=== PATIENT | male | born 1955 | race Caucasian/White ===

== ENCOUNTER 2020-04-26 11:09 | Outpatient (CLI) | payer MEDICARE, OTHER, SELFPAY ==
--- NOTE | ~2020-04-26 | XR_ITS ---
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 Osteoarthritis. TECHNIQUE: 4 views of right knee were obtained. COMPARISON: None. FINDINGS: There is lateral subluxation of patella. No fracture. There is severe osteoarthritis of pat ellofemoral compartment and mild osteoarthritis of medial and lateral compartments. No knee joint eff usion. IMPRESSION: 1. Severe right knee osteoarthritis. Reviewed, dictated and finalized at location B.
--- NOTE | ~2020-04-26 | XR_ITS ---
EXAMINATION: XR knee LT min 4V DATE: 04/26/2020 11:45 INDICATION: Meraz's cyst. Osteoarthritis. TECHNIQUE: 4 views of left knee were obtained. COMPARISON: None. FINDINGS: There is lateral subluxation of patella. No fracture. There is severe osteoarthritis of pat ellofemoral compartment and mild osteoarthritis of medial and lateral compartments. IMPRESSION: 1. Severe left knee osteoarthritis. Reviewed, dictated and finalized at location B.
== END 2020-04-26 11:10 | disposition home or self-care (01) ==
PROVIDERS: PCP Internal Medicine; Visit Provider Internal Medicine
DX: M17.0 Bilateral primary osteoarthritis of knee (principal); M71.21 Synovial cyst of popliteal space [Baker], right knee; M71.22 Synovial cyst of popliteal space [Baker], left knee
CPT/HCPCS: 73564

== ENCOUNTER 2020-05-02 13:14 | Outpatient (CLI) | payer MEDICARE, OTHER, SELFPAY ==
--- NOTE | ~2020-05-02 | US_ITS ---
EXAMINATION: US soft tissue LE RT DATE: 05/02/2020 13:52 INDICATION: Synovial cyst of right popliteal space. TECHNIQUE: Multiple grayscale and Doppler ultrasound images of the right lower limb were obtained. COMPARISON: None FINDINGS: There is a right-sided Meraz's cyst with septation and internal echoes measuring 1.7 x 3.2 x 0.6 cm. IMPRESSION: 1. Moderate-sized right-sided Meraz's cyst. Reviewed, dictated and finalized at location A.
--- NOTE | ~2020-05-02 | US_ITS ---
EXAMINATION: US soft tissue LE LT DATE: 05/02/2020 13:48 INDICATION: Synovial cyst of left popliteal space. TECHNIQUE: Multiple grayscale and Doppler ultrasound images of the left lower limb were obtained. COMPARISON: None FINDINGS: There is no abnormal mass or Meraz's cyst in the left popliteal fossa. IMPRESSION: 1. No left-sided Meraz's cyst. Reviewed, dictated and finalized at location A.
== END 2020-05-02 13:15 | disposition home or self-care (01) ==
PROVIDERS: PCP Internal Medicine; Visit Provider Internal Medicine
DX: M71.21 Synovial cyst of popliteal space [Baker], right knee (principal); M71.22 Synovial cyst of popliteal space [Baker], left knee
CPT/HCPCS: 76882

== ENCOUNTER 2020-05-08 09:00 | Outpatient (CLI) | payer MEDICARE, OTHER, SELFPAY ==
[2020-05-08 09:22] LABS: Basophils Percent Auto 0.3 % (0.2-1.2); Eosinophils Absolute Auto 0.2 K/mm3 (0-0.3); Eosinophils Percent Auto 3.1 % (0-4.4); Hemoglobin 14.5 g/dL (14.0-18.0); Immature Granulocyte Absolute 0.01 K/mm3 (0.00-0.031); Immature Granulocyte Percent A 0.2 % (0-0.5); Lymphocytes Absolute Auto 1.71 K/mm3 (0.9-3.2); Lymphocytes Percent Auto 27.9 % (18.3-44.2); Mean Corpuscular HGB Conc 34.5 g/dl (32-36); Mean Corpuscular Hemoglobin 31.7 pg (26-34); Mean Corpuscular Volume 91.7 fl (80-100); Mean Platelet Volume 10.7 fl (7.4-10.4); Monocytes Absolute Auto 0.6 K/mm3 (0.1-0.6); Monocytes Percent Auto 9.3 % (2.6-8.5); Neutrophils Absolute Auto 3.6 K/mm3 (1.3-6.7); Neutrophils Percent Auto 59.2 % (45.5-73.1); Platelet Count Result 167 k/mm3 (150-375); Red Blood Count 4.58 M/mm3 (4.6-6.20); Red Cell Distribution Width 12.4 % (11.5-14.5); White Blood Count 6.1 K/mm3 (4.5-10.0)
[2020-05-08 09:31] LABS: Alanine Aminotransferase 36 U/L (4-50); Albumin Level 4.2 g/dL (3.5-5.1); Alkaline Phosphatase 44 U/L (38-126); Anion Gap 8 mmol/L (8-16); Aspartate Amino Transferase 40 U/L (17-59); Bilirubin,Total 0.4 mg/dL (0.2-1.3); Blood Urea Nitrogen 19 mg/dL (9-20); Calcium 8.8 mg/dL (8.4-10.2); Carbon Dioxide 24 mmol/L (22-30); Chloride 105 mmol/L (98-107); Cholesterol 144 mg/dL (0-200); Estimated Glomerular Filt Rate > 60; Glucose 125 mg/dL (75-110); HDL Direct 45 mg/dL; Potassium 4.3 mmol/L (3.4-5.0); Sodium 137 mmol/L (137-145); Triglycerides 75 mg/dL (<150)
[2020-05-08 09:33] LABS: Hemoglobin A1C 5.5 % (<5.7)
[2020-05-08 09:43] LABS: LDL Cholesterol Direct 82 mg/dL
[2020-05-08 10:01] LABS: Prostate Specific Antigen 0.3 ng/mL (< OR = 4.0)
[2020-05-08 10:19] LABS: Free T4 Free Thyroxine 0.65 ng/mL (0.78-2.19)
[2020-05-11 08:45] LABS: Vitamin D 1,25 (OH)2 Total 47 pg/mL (18-72); Vitamin D2 1,25 (OH)2 <8 pg/mL; Vitamin D3 1,25 (OH)2 47 pg/mL
[2020-05-11 14:04] LABS: Reference Lab Test Result Negative
[2020-05-11 18:44] LABS: Homocysteine 8.6 umol/L (<11.4)
[2020-05-12 04:57] LABS: Insulin Level Total 5.3 uIU/mL (<=19.6)
== END 2020-05-08 09:01 | disposition home or self-care (01) ==
PROVIDERS: PCP Internal Medicine; Visit Provider Internal Medicine
DX: Z12.5 Encounter for screening for malignant neoplasm of prostate (principal); E55.9 Vitamin D deficiency, unspecified; Z79.899 Other long term (current) drug therapy; E78.2 Mixed hyperlipidemia; R79.9 Abnormal finding of blood chemistry, unspecified; Z01.84 Encounter for antibody response examination
CPT/HCPCS: 36415; 80053; 80061; 82652; 83036; 83090; 83525; 84153; 84439; 84443; 85025; 86769; G0103

== ENCOUNTER 2020-06-02 09:31 | Outpatient (CLI) | payer MEDICARE, OTHER, SELFPAY ==
[2020-06-02 09:59] LABS: Glucose 119 mg/dL (75-110)
== END 2020-06-02 09:32 | disposition home or self-care (01) ==
LOC: ANHLAB 09:33
PROVIDERS: PCP Internal Medicine; Visit Provider Internal Medicine
DX: R73.01 Impaired fasting glucose (principal)
CPT/HCPCS: 36415; 82947

== ENCOUNTER 2021-03-14 12:31 | Outpatient (CLI) | payer MEDICARE, OTHER, SELFPAY ==
[2021-03-14 13:30] LABS: Anion Gap 8 mmol/L (8-16); Blood Urea Nitrogen 21 mg/dL (9-20); Calcium 9.3 mg/dL (8.4-10.2); Carbon Dioxide 27 mmol/L (22-30); Chloride 104 mmol/L (98-107); Cholesterol 150 mg/dL (0-200); Estimated Glomerular Filt Rate > 60; Glucose 102 mg/dL (75-110); HDL Direct 41 mg/dL; Potassium 4.2 mmol/L (3.4-5.0); Sodium 139 mmol/L (137-145); Triglycerides 108 mg/dL (<150)
[2021-03-14 13:31] LABS: Hemoglobin A1C 6.1 % (<5.7)
[2021-03-14 13:44] LABS: LDL Cholesterol Direct 74 mg/dL
== END 2021-03-14 12:32 | disposition home or self-care (01) ==
PROVIDERS: PCP Internal Medicine; Visit Provider Internal Medicine
DX: R73.01 Impaired fasting glucose (principal); E78.2 Mixed hyperlipidemia; Z51.81 Encounter for therapeutic drug level monitoring; Z79.899 Other long term (current) drug therapy
CPT/HCPCS: 36415; 80048; 80061; 83036

== ENCOUNTER 2021-03-26 09:11 | Outpatient (CLI) | payer MEDICARE, OTHER, SELFPAY ==
[2021-03-26 09:59] LABS: Add Urine Microscopic? NO; Appearance Urine Clear (Clear); Bilirubin Urine Negative (Negative); Blood Urine Negative (Negative); Color Urine Straw (Yellow); Glucose Urine UA Negative (Negative); Ketones Urine Negative (Negative); Leukocyte Esterase Ur Negative LEU/UL (Negative); Nitrate Urine Negative (Negative); Protein Urine Negative (Negative); Specific Grav Ur 1.008 (1.001-1.035); Urobilinogen Urine Negative mg/dL (<2.0)
== END 2021-03-26 09:12 | disposition home or self-care (01) ==
PROVIDERS: PCP Internal Medicine; Visit Provider Internal Medicine
DX: R31.0 Gross hematuria (principal)
CPT/HCPCS: 81003

== ENCOUNTER 2021-03-27 08:44 | Outpatient (CLI) | payer MEDICARE, OTHER, SELFPAY ==
--- NOTE | ~2021-03-27 | CT_ITS ---
EXAMINATION: CT abdomen pelvis wo/w con DATE: 03/27/2021 09:34 INDICATION: Gross hematuria TECHNIQUE: Computed tomography (CT) of the abdomen and pelvis was performed without and subsequently with 130 cc Omnipaque 350 intravenous contrast. Automated exposure control and iterative reconstructi on technique were employed. Exam dose: 1373.73 mGy-cm total exam DLP. COMPARISON: None. FINDINGS: The lung bases are clear of infiltrate or consolidation. Normal heart size. No pericardial or pleural effusion. No hepatic, splenic, pancreatic, adrenal or renal space-occupying mass lesion is evident. 3 mm nonobstructing lower pole right renal calculus. 2.5 mm nonobstructing upper pole left renal calculus. No ureteral calculus or hydroureteronephrosis. The urinary bladder is unremarkable. There is prostate enlargement and calcification. No evidence of appendicitis. Diverticulosis of left and right colon; no CT evidence of diverticulitis . No bowel obstruction or bowel wall thickening, pneumatosis or intraperitoneal free air. Normal caliber of the abdominal aorta. No intraperitoneal or retroperitoneal or pelvic mass lesion or adenopathy or ascites is detected. Fat-containing left inguinal hernia. 2 x 2.3 cm fat-containing umbilical hernia. T11 vertebral body hemangioma. L4 limbus vertebra. Degenerative changes of the included lower thoraci c and lumbar spine. No suspicious osteolytic or osteoblastic lesions are noted. IMPRESSION: 3 mm nonobstructing lower pole right renal calculus 2.5 mm nonobstructing upper pole left renal calculus No ureteral calculus or hydroureteronephrosis Prostate enlargement and calcifications Diverticulosis of left and right colon Fat-containing left inguinal and umbilical hernias Reviewed, dictated and finalized at Location A. Reviewed, dictated and finalized at location B.
== END 2021-03-27 08:45 | disposition home or self-care (01) ==
PROVIDERS: PCP Internal Medicine; Visit Provider Internal Medicine
DX: R31.0 Gross hematuria (principal); N20.0 Calculus of kidney; N40.0 Benign prostatic hyperplasia without lower urinary tract symptoms; K57.30 Diverticulosis of large intestine without perforation or abscess without bleeding; K40.90 Unilateral inguinal hernia, without obstruction or gangrene, not specified as recurrent; K42.9 Umbilical hernia without obstruction or gangrene
CPT/HCPCS: 74178; Q9967

== ENCOUNTER 2021-04-16 13:49 | Outpatient (CLI) | payer MEDICARE, OTHER, SELFPAY ==
--- NOTE | ~2021-04-16 | XR_ITS ---
EXAMINATION: XR abdomen/kub 1V DATE: 04/16/2021 14:09 INDICATION: Bilateral calcium kidney stones. TECHNIQUE: A supine view of the abdomen on 2 radiographs was obtained. COMPARISON: CT abdomen and pelvis 03/27/2021 FINDINGS: There are no dilated loops of bowel. There is no visible urolithiasis. IMPRESSION: 1. No visible urolithiasis. Reviewed, dictated and finalized at location A. IMPRESSION: 1. No visible urolithiasis.
== END 2021-04-16 13:50 | disposition home or self-care (01) ==
LOC: ANHIMG 13:55
PROVIDERS: PCP Internal Medicine; Visit Provider Urology
DX: N20.0 Calculus of kidney (principal)
CPT/HCPCS: 74018

== ENCOUNTER 2025-03-22 12:43 | Emergency (ER) | payer MEDICARE, OTHER, SELFPAY ==
--- NOTE | ~2025-03-22 | XR_ITS ---
EXAMINATION: XR ankle LT min 3V DATE: 03/22/2025 13:32 INDICATION: Lateral left ankle pain and swelling TECHNIQUE: Anteroposterior, oblique, mortise, and lateral views of the left ankle were obtained. COMPARISON: None. FINDINGS: Bone alignment is normal. No fracture. Joint spaces are normal. No erosions to suggest inflammatory a rthritis. Small plantar calcaneal spur. 1-2 mm triangular foreign body, potentially a small glass fra gment, projecting over the superficial subcutaneous tissues along the heel plantar fat pad. Small reg ion of increased density anterior to the tibiotalar joint line on the lateral projection consistent w ith synovitis or small ankle joint effusion. There is mild soft tissue swelling about the lateral mal leolus. IMPRESSION: 1. Lateral sided soft tissue swelling with synovitis versus small joint effusion at the anterior rece ss of the ankle joint. No erosions or acute osseous abnormality. 2. 1-2 mm relatively superficial foreign body at the plantar aspect of the heel. Reviewed, dictated and finalized at location A. IMPRESSION: 1. Lateral sided soft tissue swelling with synovitis versus small joint effusio n at the anterior recess of the ankle joint. No erosions or acute osseous abnor mality. 2. 1-2 mm relatively superficial foreign body at the plantar aspect of the heel .
--- NOTE | 2025-03-22 12:50 | ED_ITS ---
HPI - Extremity Injury (Lower) General Chief Complaint: Extremity Problem,Nontraumatic Stated Complaint: L ANKLE SWELLING Time Seen by Provider: 03/22/25 13:10 Source: patient Mode of arrival: ambulatory Limitations: no limitations History of Present Illness HPI Narrative: Mahad is a 69-year-old male patient presenting to the clinic today with complaints of left ankle pain and swelling. He reports the ankle pain has been going on for approximately 10 days. States he has had chronic swelling in the left ankle for the past couple years. No known injury. States it is painful to the left lateral ankle. Rates his pain currently a 4/10. Has had a venous duplex on his left leg before to rule out DVT due to the ankle swelling. Related Data Home Medications ?Medication ?Instructions ?Recorded ?Confirmed ?Last Taken ?Type [id number] 300 mcg-K 60 1 tablet PO DAILY 05/03/20 04/06/21 Unknown History mcg-lycop 600 mcg-lutein 300 mcg tablet (Centrum Silver Men) omega-3 fatty acids 1,000 mg 1,000 mg PO DAILY 05/03/20 04/06/21 Unknown History capsule (Fish Oil Concentrate) aspirin 81 mg tablet,delayed 81 mg PO DAILY 04/04/21 04/06/21 Unknown History release (Adult Low Dose Aspirin) Allergies Allergy/AdvReac Type Severity Reaction Status Date / Time No Known Allergies Allergy Verified 03/22/25 13:06 Review of Systems Review of Systems: Pertinent positives per HPI. Patient denies any fever, chills, rash, headache, visual changes, dizziness, cough, runny nose, sore throat, shortness of breath, chest pain, palpitations, nausea, vomiting, diarrhea, constipation, abdominal pain, or any urinary issues. [facility] Past Medical History Medical History Follow up Aortic root dilatation Right leg pain Kidney stones Non-ischemic cardiomyopathy Pre-diabetes Encounter for routine adult health examination with abnormal findings Hematuria Vision changes Impaired fasting glucose Encounter for Medicare annual wellness exam Degenerative arthritis of knee, bilateral BMI 28.0-28.9,adult Exposure to COVID-19 virus Ocular histoplasmosis syndrome of right eye Vitamin D deficiency Abnormal finding of blood chemistry Encounter for special screening examination for neoplasm of prostate BMI 27.0-27.9,adult DJD (degenerative joint disease) of knee Hx of atrial fibrillation without current medication Encounter to establish care [employer] drug therapy Meraz's cyst of knee Hyperlipidemia Cataract Surgical History Surgical History Hx of nasal septoplasty History of cardiac radiofrequency ablation History of thyroid surgery Family History Family History Father Cerebrovascular accident Heart disease Social History Social History Smoking status: Former smoker Alcohol intake: current Living arrangements: with family Occupation/Education: occupation Additional occupation/education comments: [employer] Gender identity (if verbalized by the patient): Male Comments At the time of my signature, I reviewed and agree with the nursing past medical, surgical, social, and family history. There is no relevant family history pertinent to the patient complaint. Exam Narrative: General: Well-developed, well nourished, in no apparent distress Head: Normocephalic, atraumatic. Cardio: Regular rate and rhythm, s1 and s2 normal, no murmur appreciated. Resp: Clear to auscultation bilaterally, no rhonchi, rales, wheezing or rubs. Musculoskeletal: No deformity, mild left ankle swelling, tender to palpation over the lateral ankle, pain with valgus and varus testing, no pain with dorsal or plantar flexion, grossly normal range of motion, muscle strength strong and equal, peripheral pulse strong, no edema, no cyanosis, normal gait and station Course Course Emergency Course: Portions of this record may have been created with voice recognition software. Level of Care: Express Care Visit Vital Signs Vital signs: Vital Signs Temperature 36.7 C 03/22/25 13:07 Pulse Rate 75 03/22/25 13:07 Respiratory Rate 16 03/22/25 13:07 Blood Pressure 127/85 03/22/25 13:07 Pulse Oximetry 98 03/22/25 13:07 Temperature 36.7 C 03/22/25 13:07 Pulse Rate 75 03/22/25 13:07 Respiratory Rate 16 03/22/25 13:07 Blood Pressure 127/85 03/22/25 13:07 Pulse Oximetry 98 03/22/25 13:07 Vital signs reviewed MDM - Extremity Injury (Lower) MDM Narrative Medical decision making narrative: At the time of visit patient is resting comfortably on the exam table. Patient appears to be nontoxic. Diagnostics: X-ray of the left ankle was performed and shows probable synovitis verses small joint effusion. Plan: I suspect patient has synovitis. Prescription for Medrol Dosepak was sent to the pharmacy. Supportive measures were discussed with the patient and they voiced understanding discharge instructions and agrees to treatment plan. Return precautions reviewed Differential Diagnosis Differential diagnosis: Likely ankle sprain and strain, ankle fracture and other (Arthritis, tendinitis, synovitis, joint effusion) Imaging Data Radiologist's impression: ITS Impressions Ankle X-Ray 03/22/25 13:56 IMPRESSION: 1. Lateral sided soft tissue swelling with synovitis versus small joint effusion at the anterior recess of the ankle joint. No erosions or acute osseous abnormality. 2. 1-2 mm relatively superficial foreign body at the plantar aspect of the heel. Discharge Plan Discharge Clinical Impression: Synovitis of left ankle Patient Disposition: Home Condition: Stable Instructions: Antibiotic Form, Swollen Joint (ED) Additional Instructions: Take Medrol Dosepak as prescribed Rest, ice, elevate, and wear otilio wrap as directed Tylenol/motrin for pain as discussed. Gradually bear weight No running or sports until healed. Follow up with your PCP if symptoms persist more than 1 week. Patient Language: Kyrgyz Prescriptions: New methylprednisolone [Medrol (Pablo)] 4 mg tablets,dose pack See Rx Instructions PO .COMPLEX Qty: 21 0RF Rx Instructions: orally per package directions No Action Centrum Silver Men 300-600-300 mcg tablet 1 tablet PO DAILY omega-3 fatty acids [Fish Oil Concentrate] 1,000 mg capsule 1,000 mg PO DAILY aspirin [Adult Low Dose Aspirin] 81 mg tablet,delayed release (DR/EC) 81 mg PO DAILY Xigduo XR 10-1,000 mg tablet, IR - ER, biphasic 24hr 1 tablet PO DAILY Qty: 90 1RF Rx Instructions: Please disregard perviously sent script for Xigduo 01/1000. Thank you rosuvastatin 20 mg tablet See Rx Instructions .ROUTE .COMPLEX Qty: 90 3RF Dose Instruction: TAKE 1 TABLET BY MOUTH DAILY Rx Instructions: TAKE 1 TABLET BY MOUTH DAILY Follow-up/Referrals: [facility] [Other] Time of Disposition: 14:26 Quality NIHSS Nursing Documentation ED NIHSS nursing documentation: reviewed/agree
[2025-03-22 13:07] VITALS: BP 127/85; PULSE 75; RESP 16; TEMP 36.7; O2SAT 98
== END 2025-03-22 14:28 | disposition home or self-care (01) ==
PROVIDERS: Emergency Provider Nurse Practitioner Family
DX: M65.972 Unspecified synovitis and tenosynovitis, left ankle and foot (principal); Z87.891 Personal history of nicotine dependence; I42.8 Other cardiomyopathies; R73.03 Prediabetes; M17.0 Bilateral primary osteoarthritis of knee; E78.5 Hyperlipidemia, unspecified; Z79.82 Long term (current) use of aspirin
CPT/HCPCS: 73610; 99213; G0463